=== PATIENT | male | born 1995 ===

== ENCOUNTER 2016-09-20 17:32 | Emergency (ER) | payer OTHER ==
[~2016-09-20] VITALS: Ht 175.3 cm; Wt 69.8 kg
[2016-09-20] MEDS ORDERED: ALEVE220 M1 PO (18:59)
== END 2016-09-20 18:52 | disposition short-term general hospital (02) ==
LOC: RAD 17:32 → ER 17:32
PROC: 0HQGXZZ Repair Left Hand Skin, External Approach (ICD-10-PCS; principal; 2016-09-20)
DX: S61.211A Laceration without foreign body of left index finger without damage to nail, initial encounter (principal); W45.8XXA Other foreign body or object entering through skin, initial encounter; Y92.69 Other specified industrial and construction area as the place of occurrence of the external cause; Y99.0 Civilian activity done for income or pay; Z23 Encounter for immunization